=== PATIENT | female | born 1960 | race Caucasian/White ===

== ENCOUNTER 2018-11-04 10:22 | Day surgery (SDC) ==
[2018-11-03 10:03] LABS: HEMATOCRIT 41.7 % (37.0-47.0); HEMOGLOBIN 13.7 g/dL (12.0-16.0); MCH 31.2 PG (27-31); MCHC 32.9 g/dL (33-37); MPV 9.7 FL (7.4-10.4); RBC 4.39 XMIL (4.2-5.4); RDW 13.7 % (11.5-14.5); WBC 4.59 X1000 (4.8-10.8)
[2018-11-03 10:08] LABS: PROTIME 13.3 Seconds (11.0-16.0)
[2018-11-03 10:09] LABS: PTT 27.8 Seconds (22.3-41.8)
[2018-11-03 10:32] LABS: AGAP 8; BUN 14 mg/dL (8-22); CALCIUM 8.4 mg/dL (8.8-10.2); CHLORIDE 106 mmol/L (98-107); COSMO 281; CREATININE 0.6 mg/dL (0.5-0.9); ESTIMATED GFR > 60; GLUCOSE 93 mg/dL (70-104); POTASSIUM 4.6 mmol/L (3.5-5.1); SODIUM 141 mmol/L (136-145); TCO2 27 mmol/L (25-35)
[~2018-11-04 10:22] MED LIST: DIPRIVAN 1% ONE; SUFENTA ONE; XYLOCAINE-MPF 2% ONE
[2018-11-04] MEDS ORDERED: SENSORCAINE 0.25%/EPI 1:200,000 ONE (10:37)
[2018-11-04] MEDS ORDERED: SODIUM CHLORIDE 0.9% ONE (10:37)
[2018-11-04] MEDS ORDERED: METHYLENE BLUE 0.5% ONE (10:37)
[2018-11-04] MEDS ORDERED: METROGEL-VAGINAL 0.75% GEL ONE (10:37)
[2018-11-04] MEDS ORDERED: NEOSPORIN G.U. IRRIGANT ONE (10:38)
[2018-11-04] MEDS ORDERED: BACITRACIN ONE (10:38)
[2018-11-04] MEDS ORDERED: REGLAN ONE (11:03)
[2018-11-04] MEDS ORDERED: LR 1,000 ML ONE (11:03)
[2018-11-04] MEDS ORDERED: PEPCID ONE (11:03)
[2018-11-04] MEDS ORDERED: TRANSDERM-SCOP ONE (11:03)
[2018-11-04] MEDS ORDERED: KEFZOL 1 GM/D5W 2 GM/100 ML IVPB ONE (11:03)
[2018-11-04] MEDS ORDERED: VERSED ONE (12:05)
[2018-11-04] MEDS ORDERED: VALIUM PO ONE (13:05)
[2018-11-04] MEDS ORDERED: VALIUM ONE (13:09)
[2018-11-04] MEDS ORDERED: ZOFRAN ONE (13:30)
[2018-11-04] MEDS ORDERED: DECADRON ONE (13:30)
[2018-11-04] MEDS ORDERED: ROBINUL ONE (13:30)
[2018-11-04] MEDS ORDERED: PHENERGAN ONE (13:32)
[2018-11-04 14:13] LABS: URINE SOURCE CATH
[2018-11-04 14:23] LABS: UR EPITHELIAL CELLS <10 /HPF (<10); URINE BACTERIA NEGATIVE /HPF; URINE RBC <10 /HPF (<10); URINE WBC <10 /HPF (<10)
[2018-11-04 14:24] LABS: BILIRUBIN URINE NEGATIVE (NEGATIVE); BLOOD URINE NEGATIVE (NEGATIVE); COLOR STRAW; GLUCOSE URINE NEGATIVE (NEGATIVE); KETONE URINE 10 mg/dL (NEGATIVE); LEUKOCYTES URINE NEGATIVE (NEGATIVE); NITRITE URINE NEGATIVE (NEGATIVE); PH URINE 6.5; PROTEIN URINE NEGATIVE (NEGATIVE); SP GRAVITY URINE 1.006; TURBIDITY URINE CLEAR (CLEAR); UROBILINOGEN URINE NORMAL (NORMAL)
[2018-11-04] MEDS ORDERED: AK-FLUOR ONE (15:44)
[2018-11-04] MEDS ORDERED: NS 1,000 ML ONE (17:02)
[2018-11-04] MEDS ORDERED: MORPHINE IV PRN (17:40)
[2018-11-04] MEDS ORDERED: PHENERGAN PR PRN (17:45)
[2018-11-04] MEDS ORDERED: NS 1,000 ML IV SCH (17:45)
[2018-11-04] MEDS ORDERED: BENADRYL IV PRN (17:45)
[2018-11-04] MEDS ORDERED: DITROPAN PO PRN (17:45)
[2018-11-04] MEDS ORDERED: OFIRMEV 1000 MG/ISOTONIC SOLN 1,000 MG/100 ML BOTTLE IV PRN (17:45)
[2018-11-04] MEDS ORDERED: B & O 15A SUPP PR PRN (17:45)
[2018-11-04] MEDS ORDERED: SODIUM CHLORIDE 0.9% INJ PRN (17:45)
[2018-11-04] MEDS ORDERED: BENADRYL LIQUID PO PRN (17:45)
[2018-11-04] MEDS ORDERED: LABETALOL IV PRN (17:45)
[2018-11-04] MEDS ORDERED: PHENERGAN PO PRN (17:45)
[2018-11-04] MEDS ORDERED: NORCO-7.5 PO PRN (17:45)
[2018-11-04] MEDS ORDERED: NORCO-10 PO PRN (17:45)
[2018-11-04] MEDS ORDERED: PHENERGAN IV PRN (17:45)
[2018-11-04] MEDS ORDERED: NORCO-5 PO PRN (17:45)
[2018-11-04] MEDS: HYDROCODONE/APAP 7.5-325/15 ML PO PRN (20:14)
[2018-11-04] MEDS: ZOFRAN IV PRN (20:14)
--- NOTE | 2018-11-04 21:14 | Diag Imaging Result Doc PS360 ---
XRAY PELVIS W/HIP 2-3VW LT - 11/04/2018 INDICATION: pt feels hip is out of place TECHNIQUE: Three views COMPARISON: None FINDINGS: Portable technique was used. Detail of the hip views is extremely poor. There is no visible fracture or dislocation. There are numerous wire like densities in the lower pelvic soft tissues. IMPRESSION: No definite abnormality. Electronically signed by Faizan Spring 11/04/2018 9:12 PM
[2018-11-04] MEDS: COLACE PO SCH (22:35)
[2018-11-04] MEDS: PERIDEX MT SCH (22:35)
[2018-11-04] MEDS: KEFZOL 1 GM/D5W 1 GM/50 ML IVPB IV SCH (22:37)
[2018-11-05] MEDS: HYDROCODONE/APAP 7.5-325/15 ML PO PRN ×3 (00:40→13:13)
[2018-11-05] MEDS: KEFZOL 1 GM/D5W 1 GM/50 ML IVPB IV SCH ×2 (06:09→16:40)
[2018-11-05 07:02] LABS: HEMATOCRIT 35.9 % (37.0-47.0); HEMOGLOBIN 11.8 g/dL (12.0-16.0); MCH 31.3 PG (27-31); MCHC 32.9 g/dL (33-37); MCV 95.2 FL (81-99); MPV 9.9 FL (7.4-10.4); RBC 3.77 XMIL (4.2-5.4); RDW 13.4 % (11.5-14.5); WBC 8.62 X1000 (4.8-10.8)
[2018-11-05 07:48] LABS: AGAP 10; BUN 9 mg/dL (8-22); CALCIUM 7.5 mg/dL (8.8-10.2); CHLORIDE 109 mmol/L (98-107); COSMO 288; CREATININE 0.7 mg/dL (0.5-0.9); ESTIMATED GFR > 60; GLUCOSE 173 mg/dL (70-104); POTASSIUM 3.8 mmol/L (3.5-5.1); SODIUM 143 mmol/L (136-145); TCO2 24 mmol/L (25-35)
[2018-11-05] MEDS: PERIDEX MT SCH (08:29)
[2018-11-05] MEDS: COLACE PO SCH (08:29)
[2018-11-05] MEDS: ZOFRAN IV PRN (13:14)
[2018-11-05 16:32] VITALS: BP 98/44
--- NOTE | 2018-12-30 12:20 | OPERATIVE NOTE ---
PROCEDURE DATE: 11/04/2018 SURGEON: Barrington Foley MD PREOPERATIVE DIAGNOSIS: 1. Symptomatic cystocele. 2. Symptomatic rectocele. 3. Vaginal vault prolapse. 4. Stress urinary incontinence. POSTOPERATIVE DIAGNOSIS: 1. Symptomatic cystocele. 2. Symptomatic rectocele. 3. Vaginal vault prolapse. 4. Stress urinary incontinence. PROCEDURE PERFORMED: 1. Cystocele repair with [place] dermis graft. 2. Extraperitoneal vaginal vault suspension. 3. Rectocele repair with [place] dermis. 4. Cystourethroscopy x2. 5. Placement of Altis mid urethral sling. INDICATIONS: A 58-year-old female, status post hysterectomy who has developed pelvic organ prolapse. She has not been emptying completely with elevated postvoid residuals. She desires definitive intervention. FINDINGS: Cystourethroscopy after cystocele repair showed no evidence of injury to the bladder or the urethra and bilateral clear ureteral efflux was noted. Cystourethroscopy after Altis sling placement showed no evidence of bladder or urethral injury and bilateral clear ureteral efflux. Digital rectal examination after rectocele repair showed no evidence of palpable rectal injury. DESCRIPTION OF PROCEDURE: After obtaining informed consent, patient was brought to the operating room. Perioperative antibiotics and laryngeal mask anesthesia were administered. She was placed in exaggerated lithotomy position with her lower extremities appropriately padded. She was prepped and draped in sterile fashion. Colorectal retractor was used for exposure. A 16-Kyrgyz Matthews catheter was introduced. Her bladder was drained. We began by using 40 mL of Marcaine with epinephrine diluted 50:50 with normal saline for hydrodissection of the tissue as well as local anesthetic anteriorly between the bladder neck and the vaginal cuff which were identified by securing Allis clamps over it. We then made 6 cm vertical incision with a 15 blade. Dissection extended through the entire vaginal epithelial thickness. Metzenbaum scissors were used to free up the bladder off the anterior vaginal wall followed by blunt finger dissection. Eventually, the ischial spine was palpable bilaterally and I swept off tissues to clear off the sacrospinous ligament. Following that, we used Pufferfishek device to place PDS suture through the sacrospinous ligament approximately 2 cm medial to the ischial spine. That appeared to be deployed nicely into the ligament itself. Those were secured with hemostats. I then dissected anteriorly toward the bladder neck with Metzenbaum scissors and posteriorly toward the vaginal cuff. 2-0 PDS suture x2 was placed through the vaginal cuff and secured with hemostats. Following that, we opened 8 x 12 cm [place] dermis graft and soaked with normal saline for about 5 to 7 minutes. Surgical marking pen was used to delineate the map of the graft to accommodate her anatomy. Once the graft was trimmed to appropriate size, we used previously placed sutures through sacrospinous ligaments and threaded them through the proximal arms of the graft posteriorly. Two of the Digitek sutures were used to deploy PDS sutures into the obturator membrane as well and those were then threaded through the anterior arms of the graft. The previously placed vaginal cuff sutures were threaded through the posterior midline aspect of the graft. The sutures were all carefully tied which resulted in excellent cystocele reduction. I then used 2-0 PDS suture x2 and secured the anterior midline portion of the graft to the level of the bladder neck. The graft was not on excessive tension. There was no redundancy. It appeared to lie flat against the bladder. I then removed Matthews catheter, introduced rigid cystoscope with 70-degree lens. An inspection showed no evidence of injury to the urethra or the bladder and I was able to visualize bilateral clear ureteral efflux. After that, examination confirmed that she had quite a bit of excessive redundant vaginal tissue which was excised with heavy scissors and discarded. The wound was copiously irrigated, inspected for hemostasis which was excellent. I then used running 2-0 Vicryl suture to reapproximate a layer of deeper vaginal tissues over the graft to help with imbibition. Following that, we irrigated the wound and then closed the vaginal epithelium with 2-0 Vicryl suture in a running fashion as well. Attention was then turned to posterior repair. In a similar fashion, Allis clamps were placed at the vaginal cuff and the perineum. 20 mL of Marcaine with epinephrine diluted 50:50 with normal saline were introduced. This allowed us to hydrodissect the tissues that will help her with analgesia. Following that, approximately 5 cm vertical incision was made with a 15 blade. Dissection extended through the entire vaginal epithelial thickness and Metzenbaum scissors dissection followed by blunt surgeon's finger dissection eventually exposed ischial spine and sacrospinous ligaments. I was able to palpate previously placed sutures into the sacrospinous ligament. We used the Digitek device again to deploy 2 sutures into the sacrospinous ligament just medial to the anteriorly placed sutures. Following that, 2-0 PDS sutures x2 were placed in the vaginal cuff and secured to the anterior midline aspect of the graft. All the sutures were then tied and the rectocele appeared to reduce nicely. Please note that we used a 6 x 8 cm graft. I then used 2-0 Vicryl sutures to secure the graft laterally to the vaginal epithelium running toward the perineum. Eventually, the graft tapered. We copiously irrigated the wound and hemostasis was excellent. Digital rectal examination revealed no palpable injury to the rectum. I then used 2-0 Vicryl suture to close the layer of deeper vaginal tissue to help with graft imbibition. This was followed by irrigation and closure of the posterior vaginal epithelium with a 2-0 Vicryl suture in a running fashion. Attention was then turned to Altis mid urethral sling placement. Next, 10 mL of Marcaine with epinephrine diluted with 50 mL normal saline were used to hydro dissect the level of mid urethra. A 3 cm incision was made with a 15 blade. Dissection with Metzenbaum scissors extended around the urethra with Matthews catheter in place until surgeon's small finger was able to palpate the rami and obturator membrane. Altis sling was opened and soaked in saline on the back table. Per monitor car operator's instructions, helical trocars were used to introduce it through the obturator membrane in inside-out fashion. Adjusted suture was appropriately tightened. The sling appeared to lie flat against the level of mid urethra without kinking or folding. Matthews catheter was then removed and a 21-Kyrgyz rigid cystoscope was used to inspect the urethra in the bladder with 70- degree lens. It revealed no evidence of injury to the urethra or the bladder. I was able to visualize bilateral clear ureteral efflux. Once that was done, we replaced Matthews catheter and drained the bladder. Wound was irrigated. 3-0 Vicryl sutures were used to close the incision after the adjustable suture was cut. Vaginal packing coated with metronidazole was used. Matthews catheter was placed to gravity drainage. She was extubated and taken to PACU for further recovery. ESTIMATED BLOOD LOSS: 150 mL. COMPLICATIONS: None. SPECIMENS: Redundant vaginal epithelium which was discarded. DRAINS: 16-Kyrgyz Matthews catheter. DISPOSITION: To PACU and subsequently floor for observation. cc: Barrington Foley MD
== END 2018-11-05 17:29 | disposition home or self-care (01) ==
LOC: PAT 10:22 → OPS 10:22 → 4N 10:22 → OPS 11-05 17:29
PROVIDERS: ATTEND Urology